=== PATIENT | male | born 1965 | race Caucasian/White ===

== ENCOUNTER 2017-08-21 17:39 | Emergency (ER) | payer OTHER ==
[2017-08-21 17:59] VITALS: BP 134/77; PULSE 66; TEMP 98; BMI 26.6
[2017-08-21] MEDS ORDERED: KETOROLAC TROMETHAMINE 60 MG/2 ML VIAL IM ONE (18:17)
--- NOTE | 2017-08-21 18:23 | PDOC ---
History of Present Illness - General Chief Complaint: Injury Stated Complaint: NECK PAIN Time Seen by Provider: 08/21/17 18:07 History Source: Patient Exam Limitations: No Limitations - History of Present Illness Initial Comments: 08/21/17 18:18 52 yr male with c/o neck pain and spasm after lifting heavy ladder at work today. Pt states 2 days ago he hit his head on a pipe when standing up. no LOC no dizzyness or headache. PT has history of DM in medications. Pt denies weakness or fatigue no arm pain . 08/21/17 18:23 Pain Location: reports: none Past History - Past Medical History Allergies/Adverse Reactions: Allergies Allergy/AdvReac Type Severity Reaction Status Date / Time No Known Allergies Allergy Verified 08/21/17 17:59 Home Medications: Ambulatory Orders Diazepam [Valium] 5 mg PO Q8H PRN #9 tablet MDD 15mg 08/21/17 Ibuprofen [Motrin -] 600 mg PO TID PRN #21 tablet 08/21/17 Diabetes: Yes - Surgical History Abdominal Surgery: Yes (HERNIA) - Suicide/Smoking/Psychosocial Hx Smoking History: Never smoked Hx Alcohol Use: No Drug/Substance Use Hx: No Review of Systems - Review of Systems Able to Perform ROS?: Yes Is the patient limited Hungarian proficient: No Constitutional: No: Symptoms Reported HEENTM: No: Symptoms Reported Respiratory: No: Symptoms reported Cardiac (ROS): No: Symptoms Reported ABD/GI: No: Symptoms Reported : No: Symptoms Reported Musculoskeletal: Yes: Symptoms Reported, See HPI, Neck Pain *Physical Exam - Vital Signs Last Vital Signs Temp Pulse Resp BP Pulse Ox 98.0 F 66 20 134/77 97 08/21/17 17:56 08/21/17 17:56 08/21/17 17:56 08/21/17 17:56 08/21/17 17:56 - Physical Exam General Appearance: Yes: Nourished, Appropriately Dressed HEENT: positive: EOMI, PITA Neck: positive: Supple, Tender lateral, Other (muscle spasm ). negative: Tender Respiratory/Chest: positive: Lungs Clear, Normal Breath Sounds Cardiovascular: positive: Regular Rhythm, Regular Rate Musculoskeletal: positive: Normal Inspection, Decreased Range of Motion, Muscle Spasm. 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, Fully Oriented, Alert, Normal Mood/ Affect, Motor Strength 03/01 ED Treatment Course - RADIOLOGY Radiology Studies Ordered: Category Date Time Status SPINE-CERVICAL [RAD] Stat Radiology 08/21/17 18:17 Ordered Medical Decision Making - Medical Decision Making 08/21/17 18:24 cc: neck strain after lifiting heavy ladder no headache or dizzyness ttp soft tissue left sterneclomastoid muscle will give toradol ice pack in place will get xray 08/21/17 19:17 *DC/Admit/Observation/Transfer Diagnosis at time of Disposition: Strain of tendon of neck Qualifiers: Encounter type: initial encounter Qualified Code(s): S16.1XXA - Strain of muscle, fascia and tendon at neck level, initial encounter; S16.1XXA - Strain of muscle, fascia and tendon at neck level, initial encounter - Discharge Dispostion Disposition: HOME - Prescriptions Prescriptions: Ibuprofen [Motrin -] 600 mg PO TID PRN #21 tablet PRN Reason: Pain Diazepam [Valium] 5 mg PO Q8H PRN #9 tablet MDD 15mg PRN Reason: Muscle Spasms - Patient Instructions Additional Instructions: apply warm compresses to areas of pain take the valium as directed for spasm take the motrin every 6hrs for pain apply warm compresses to the area of pain every 3hrs for 20 minutes follow with your doctor in 1-2 days Return if any worsening symptoms - Post Discharge Activity Forms/Work/School Notes: Back to Work
[2017-08-21] MEDS ORDERED: KETOROLAC TROMETHAMINE 60 MG/2 ML VIAL ONE (18:31)
== END 2017-08-21 19:41 | disposition home or self-care (01) ==
LOC: JERFT 17:39
PROC: 3E0233Z Introduction of Anti-inflammatory into Muscle, Percutaneous Approach (ICD-10-PCS; principal; 2017-08-21)
DX: S16.1XXA Strain of muscle, fascia and tendon at neck level, initial encounter (principal); X50.0XXA Overexertion from strenuous movement or load, initial encounter; X50.9XXA Other and unspecified overexertion or strenuous movements or postures, initial encounter; Y93.89 Activity, other specified; Y92.69 Other specified industrial and construction area as the place of occurrence of the external cause; Y99.0 Civilian activity done for income or pay
CPT/HCPCS: 72050-TC; 99281-25

== ENCOUNTER 2019-08-25 09:41 | Emergency (ER) | payer OTHER ==
[2019-08-25 09:46] VITALS: BP 124/78; PULSE 71; TEMP 97.5; BMI 61.6
[2019-08-25] MEDS ORDERED: KETOROLAC TROMETHAMINE 60 MG/2 ML VIAL IM ONE (10:33)
[2019-08-25] MEDS ORDERED: KETOROLAC TROMETHAMINE 60 MG/2 ML VIAL ONE (10:35)
--- NOTE | 2019-08-25 11:09 | PDOC ---
History of Present Illness - General Chief Complaint: Pain Stated Complaint: RT. ALMALER PAIN Time Seen by Provider: 08/25/19 09:52 - History of Present Illness Initial Comments: 08/25/19 11:07 CHIEF COMPLAINT: R shoulder pain HISTORY OF PRESENT ILLNESS: 54 yo M presents to [facility] with R shoulder pain. PAtient reports he was lifting 3 pieces of heavy plywood at work and "pulled a muscle" in his shoulder. Reports that he has full ROM but "feels sore." No recent travel or sick contacts. PAST MEDICAL HISTORY: Denies past medical history FAMILY HISTORY: Denies SOCIAL HISTORY: Denies tobacco, alcohol, illicit drug use. SURGICAL HISTORY: Denies ALLERGIES: No known drug allergies REVIEW OF SYSTEMS General/Constitutional: Denies fever or chills. Denies weakness, weight change. HEENT: Denies change in vision. Denies ear pain or discharge. Denies sore throat. Cardiovascular: Denies chest pain or shortness of breath. Respiratory: Denies cough, wheezing, or hemoptysis. Gastrointestinal: Denies nausea, vomiting, diarrhea or constipation. Denies rectal bleeding. Genitourinary: Denies dysuria, frequency, or change in urination. Musculoskeletal: R shoulder pain. Skin and breasts: Denies rash or easy bruising. Neurologic: Denies headache, vertigo, loss of consciousness, or loss of sensation. Psychiatric: Denies depression or anxiety. PHYSICAL EXAM General Appearance: Well-appearing, appropriately dressed. No apparent distress , no intoxication. HEENT: EOMI, PERRLA, normal ENT inspection, normal voice, TMs normal, pharynx normal. No conjunctival pallor. No photophobia, scleral icterus. Neck: Supple. Trachea midline. No tenderness, rigidity, carotid bruit, stridor , lymphadenopathy, or thyromegaly. Respiratory/Chest: Lungs CTAB. No shortness of breath, chest tenderness, respiratory distress, accessory muscle use. No crackles, rales, rhonchi, stridor , wheezing, dullness Cardiovascular: RRR. S1, S2. No JVD, murmur, bradycardia, tachycardia. Vascular Pulses: Dorsalis-Pedis (R): 2+, Dorsalis-Pedis (L): 2+ Gastrointestinal/Abdominal: Normal bowel sounds. Abdomen soft, non-distended. No tenderness or rebound tenderness. No organomegaly, pulsatile mass, guarding , hernia, hepatomegaly, splenomegaly. Lymphatic: No adenopathy, tenderness. Musculoskeletal/Extremities: Mild TTP to anterior R shoulder. Normal inspection. FROM of all extremities, normal capillary refill. Pelvis Stable. No CVA tenderness. No tenderness to extremities, pedal edema, swelling, erythema or deformity. Integumentary: Appropriate color, dry, warm. 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 Fully oriented, alert. Appropriate mood/affect. Motor strength 5/5. No appreciable EOM palsy, facial droop or sensory deficit. Past History - Past Medical History Allergies/Adverse Reactions: Allergies Allergy/AdvReac Type Severity Reaction Status Date / Time No Known Allergies Allergy Verified 08/25/19 09:43 Home Medications: Ambulatory Orders Diazepam [Valium] 5 mg PO Q8H PRN #9 tablet MDD 15mg 08/21/17 Ibuprofen [Motrin -] 600 mg PO TID PRN #21 tablet 08/21/17 Naproxen 500 mg PO BID #20 tablet 08/25/19 COPD: No Diabetes: Yes - Surgical History Abdominal Surgery: Yes (HERNIA) - Psycho Social/Smoking Cessation Hx Smoking History: Never smoked Have you smoked in the past 12 months: No Hx Alcohol Use: No Drug/Substance Use Hx: No *Physical Exam - Vital Signs Last Vital Signs Temp Pulse Resp BP Pulse Ox 97.5 F L 71 18 124/78 100 08/25/19 09:43 08/25/19 09:43 08/25/19 09:43 08/25/19 09:43 08/25/19 09:43 ED Treatment Course - RADIOLOGY Radiology Studies Ordered: Category Date Time Status SHOULDER-RIGHT [RAD] Stat Radiology 08/25/19 09:52 Completed - Medications Given in the ED: ED Medications Discontinued Medications Generic Name Dose Route Start Last Admin Trade Name Freq PRN Reason Stop Dose Admin Ketorolac Tromethamine 60 mg 08/25/19 10:33 08/25/19 10:37 Toradol Injection - IM 08/25/19 10:34 60 mg ONCE ONE Administration Medical Decision Making - Medical Decision Making 08/25/19 11:08 54 yo M presents to fast track with R shoulder pain. -x-ray -toradol Discharge - Discharge Information Problems reviewed: Yes Clinical Impression/Diagnosis: Shoulder pain Qualifiers: Chronicity: acute Laterality: right Qualified Code(s): M25.511 - Pain in right shoulder Condition: Stable Disposition: HOME - Admission No - Additional Discharge Information Prescriptions: Naproxen 500 mg PO BID #20 tablet - Follow up/Referral Referrals: Sixto Lance MD [Staff Physician] - - Patient Discharge Instructions Patient Printed Discharge Instructions: DI for Shoulder Pain - Post Discharge Activity
[2019-08-25] MEDS ORDERED: BUPIVACAINE HCL/PF 0.5% (5 MG/ML) 30 ML VIAL IJ ONE (11:57)
== END 2019-08-25 11:15 | disposition home or self-care (01) ==
LOC: JERFT 09:41
PROC: 3E0233Z Introduction of Anti-inflammatory into Muscle, Percutaneous Approach (ICD-10-PCS; principal; 2019-08-25)
DX: S49.81XA Other specified injuries of right shoulder and upper arm, initial encounter (principal); M25.511 Pain in right shoulder; X50.0XXA Overexertion from strenuous movement or load, initial encounter; Y93.89 Activity, other specified; Y92.69 Other specified industrial and construction area as the place of occurrence of the external cause; Y99.0 Civilian activity done for income or pay; E11.9 Type 2 diabetes mellitus without complications
CPT/HCPCS: 73030-TC-RT-FY; 99281-25

== ENCOUNTER 2020-05-05 11:01 | Emergency (ER) | payer OTHER ==
--- NOTE | 2020-05-05 11:04 | PDOC ---
Rapid Medical Evaluation Time Seen by Provider: 05/05/20 11:02 Medical Evaluation: Allergies Allergy/AdvReac Type Severity Reaction Status Date / Time No Known Allergies Allergy Verified 08/25/19 09:43 05/05/20 11:03 I performed a brief in-person evaluation of this patient. 55 y/o male with a R knee injury that he sustained today when he hit his knee against the car door. He states he had a previous injury to that knee. He has a h/o DM. Pertinent physical exam findings: + limping, R knee with brace in place, nontoxic I have ordered the following: R knee xray Patient to proceed to ED for further evaluation. Discharge Disposition - Diagnosis Right knee injury - Referrals - Patient Instructions - Post Discharge Activity
[2020-05-05] MEDS ORDERED: KETOROLAC TROMETHAMINE 30 MG/1 ML VIAL IM ONE (11:48)
[2020-05-05] MEDS ORDERED: KETOROLAC TROMETHAMINE 30 MG/1 ML VIAL ONE (11:52)
[2020-05-05 11:55] VITALS: BP 124/80; PULSE 92; TEMP 98.7; BMI 25.7
--- NOTE | 2020-05-05 11:56 | PDOC ---
History of Present Illness - General Chief Complaint: Injury Stated Complaint: RT KNEE INJURY Time Seen by Provider: 05/05/20 11:02 History Source: Patient Exam Limitations: Clinical Condition - History of Present Illness Initial Comments: 05/05/20 11:56 Patient with past medical history of osteoarthritis of the knee being followed by orthopedics present with complaint of right anterior knee pain status post accidentally hitting kneecap on a barstool while getting off a bus this morning. Report increased pain to right knee with ambulation. Reported putting home with topical lidocaine patch on knee which has been helping with pain. Patient not take anything else for pain. Denies weakness in knee. Patient report he has been advised to orthopedics he will need a knee replacement due to arthritis and being scheduled by orthopedics for knee surgery. Denies any other symptoms Occurred: reports: this morning Past History - Medical History Allergies/Adverse Reactions: Allergies Allergy/AdvReac Type Severity Reaction Status Date / Time No Known Allergies Allergy Verified 05/05/20 11:06 Home Medications: Ambulatory Orders Diazepam [Valium] 5 mg PO Q8H PRN #9 tablet MDD 15mg 08/21/17 Ibuprofen [Motrin -] 600 mg PO TID PRN #21 tablet 08/21/17 Naproxen 500 mg PO BID #20 tablet 08/25/19 Meloxicam 15 mg PO DAILY PRN #20 tablet 05/05/20 COPD: No Diabetes: Yes - Surgical History Abdominal Surgery: Yes (HERNIA) - Psycho-Social/Smoking History Smoking History: Never smoked Have you smoked in the past 12 months: No Information on smoking cessation initiated: No - Substance Abuse Hx (Audit-C & DAST Scrn) How often the patient has a drink containing alcohol: Never Score: In Men: 4 or > Positive; In Women: 3 or > Positive: 0 Screen Result (Pos requires Nsg. Audit-10AR): Negative In the last yr the pt used illegal drug/Rx for NonMed reason: No Score: Yes response is considered Positive: 0 Screen Result (Positive result requires Nsg. DAST-10): Negative Review of Systems - Review of Systems Able to Perform ROS?: Yes Is the patient limited Kyrgyz proficient: No Constitutional: No: Chills, Fever, Malaise HEENTM: No: Symptoms Reported, See HPI, Eye Pain, Blurred Vision, Tearing, Recent change in vision, Double Vision, Cataracts, Ear Pain, Ocular Prothesis, Ear Discharge, Nose Pain, Nose Congestion, Tinnitus, Nose Bleeding, Hearing Loss, Throat Pain, Throat Swelling, Mouth Pain, Dental Problems, Difficulty Swallowing, Mouth Swelling, Other Respiratory: No: Symptoms reported, See HPI, Cough, Orthopnea, Shortness of Breath, SOB with Exertion, SOB at Rest, Stridor, Wheezing, Productive cough, Hemoptysis, Other Cardiac (ROS): No: Symptoms Reported, See HPI, Chest Pain, Edema, Irregular Heart Rate, Lightheadedness, Palpitations, Syncope, Chest Tightness, Other Musculoskeletal: Yes: Symptoms Reported, See HPI, Joint Pain (right knee pain), Muscle Pain (anterior right knee pain) Integumentary: No: Symptoms Reported Neurological: No: Symptoms reported, Paresthesia, Tingling, Weakness All Other Systems: Reviewed and Negative *Physical Exam - Vital Signs Last Vital Signs Temp Pulse Resp BP Pulse Ox 98.7 F 92 H 18 124/80 99 05/05/20 11:03 05/05/20 11:03 05/05/20 11:03 05/05/20 11:03 05/05/20 11:03 - Physical Exam 05/05/20 12:00 GENERAL: Well developed, well nourished. Awake and alert. No acute distress. PULMONARY: No evidence of respiratory distress. MUSCULOSKELETAL : Mild tenderness to anterior patella of right knee. No joint effusion. No visible deformity or swelling to right knee. No bruising or ecchymosis to right knee SKIN: Warm and dry. Normal capillary refill. NEUROLOGICAL: Alert, awake, appropriate. No motor deficits in the lower extremities. Gait is normal without ataxia. PSYCHIATRIC: Cooperative. Good eye contact. Appropriate mood and affect. General Appearance: Yes: Nourished, Appropriately Dressed. No: Apparent Distress ED Treatment Course - Medications Given in the ED: ED Medications Discontinued Medications Generic Name Dose Route Start Last Admin Trade Name Freq PRN Reason Stop Dose Admin Ketorolac Tromethamine 30 mg 05/05/20 11:48 05/05/20 11:51 Toradol Injection - IM 05/05/20 11:49 30 mg ONCE ONE Administration Medical Decision Making - Medical Decision Making 05/05/20 11:58 Patient with past medical history of osteoarthritis of the knee being followed by orthopedics present with complaint of right anterior knee pain status post accidentally hitting danny on a barstool while getting off a bus this morning. Report increased pain to right knee with ambulation. Reported putting home with topical lidocaine patch on knee which has been helping with pain. Patient not take anything else for pain. Denies weakness in knee. Patient report he has been advised to orthopedics he will need a knee replacement due to arthritis and being scheduled by orthopedics for knee surgery. Denies any other symptoms Exam significant for mild tenderness to anterior patella of right knee. No visible swelling or deformity. Negative anterior and posterior drawer test of right knee. Patient with normal gait with mild limp from knee pain. X-ray of right knee shows moderate arthritis changes knee with no acute fracture or dislocation. X-ray result discussed with patient. Toradol 30 mg IM ordered for pain. Patient stable for discharge on meloxicam PRN for pain with orthopedics follow-up. Patient will follow-up with his own orthopedics Discharge - Discharge Information Problems reviewed: Yes Clinical Impression/Diagnosis: Contusion of right knee, initial encounter Right knee injury Qualifiers: Encounter type: initial encounter Qualified Code(s): S89.91XA - Unspecified injury of right lower leg, initial encounter Condition: Stable Disposition: HOME - Admission No - Additional Discharge Information Prescriptions: Meloxicam 15 mg PO DAILY PRN #20 tablet PRN Reason: knee pain - Follow up/Referral - Patient Discharge Instructions Patient Printed Discharge Instructions: DI for Knee Sprain Additional Instructions: X-ray of your knee shows no acute fracture or dislocation. X-ray shows arthritis in the knee which you are already aware of. Take prescribed medication as needed for pain. Use given Prieto bandage to help as needed for knee. Follow-up with orthopedics as discussed - Post Discharge Activity Work/Back to School Note: Back to Work
== END 2020-05-05 12:20 | disposition home or self-care (01) ==
LOC: JERFT 11:01
PROC: 3E023GC Introduction of Other Therapeutic Substance into Muscle, Percutaneous Approach (ICD-10-PCS; principal; 2020-05-05)
DX: S80.01XA Contusion of right knee, initial encounter (principal); W22.8XXA Striking against or struck by other objects, initial encounter
CPT/HCPCS: 73562-TC-RT-FY; 99284-25

== ENCOUNTER 2023-06-11 08:03 | Emergency (ER) | payer OTHER, BC ==
[2023-06-11 08:12] VITALS: BP 135/83; PULSE 84; RESP 18; TEMP 98.6; BMI 26.6
[2023-06-11] MEDS ORDERED: ACETAMINOPHEN 500 MG TABLET (FP) PO ONE (08:39)
[2023-06-11] MEDS ORDERED: LIDOCAINE 5% TOPICAL PATCH TP ONE (08:39)
[2023-06-11] MEDS ORDERED: KETOROLAC TROMETHAMINE 30 MG/1 ML VIAL IM ONE (08:41)
[2023-06-11] MEDS ORDERED: KETOROLAC TROMETHAMINE 60 MG/2 ML VIAL ONE (09:34)
[2023-06-11] MEDS ORDERED: ACETAMINOPHEN 325 MG TABLET (FP) ONE (09:34)
[2023-06-11] MEDS ORDERED: LIDOCAINE 5% TOPICAL PATCH ONE (09:34)
[2023-06-11] MEDS ORDERED: LIDOCAINE PATCH REMOVAL MC SCH (22:00)
== END 2023-06-11 10:30 | disposition home or self-care (01) ==
LOC: JERFT 08:03
PROC: 3E0233Z Introduction of Anti-inflammatory into Muscle, Percutaneous Approach (ICD-10-PCS; principal; 2023-06-11)
DX: M54.41 Lumbago with sciatica, right side (principal)
CPT/HCPCS: 99284-25

== ENCOUNTER 2024-07-01 07:11 | Emergency (ER) | payer BC ==
[2024-07-01 07:34] VITALS: BP 137/90; PULSE 66; RESP 15; TEMP 98; BMI 26.6
[2024-07-01] MEDS ORDERED: LIDOCAINE HCL 1%, 10 MG/ML (20ML VIAL) ONE (08:00)
[2024-07-01] MEDS ORDERED: DIPHTH,PERTUSS(ACELL),TET 0.5 ML DISP.SYRIN IM ONE (08:03)
[2024-07-01] MEDS ORDERED: AMOX TR/POT CLAV 875MG/125MG TABLETS (FP) ONE (08:12)
[2024-07-01] MEDS: AMOX TR/POT CLAV 875MG/125MG TABLETS (FP) PO ONE (08:14)
[2024-07-01] MEDS: LIDOCAINE HCL 1%, 10 MG/ML (50 mL VIAL) SQ ONE (08:14)
[2024-07-01] MEDS: DIPHTH,PERTUSS(ACELL),TET 0.5 ML DISP.SYRIN IM ONE (08:15)
== END 2024-07-01 08:23 | disposition home or self-care (01) ==
LOC: JER 07:11 → JERFT 07:11
PROC: 0H9QXZZ Drainage of Finger Nail, External Approach (ICD-10-PCS; principal; 2024-07-01)
PROC: 3E0234Z Introduction of Serum, Toxoid and Vaccine into Muscle, Percutaneous Approach (ICD-10-PCS; 2024-07-01)
DX: S60.111A Contusion of right thumb with damage to nail, initial encounter (principal); W22.8XXA Striking against or struck by other objects, initial encounter; Y99.0 Civilian activity done for income or pay
CPT/HCPCS: 73140-TC-RT-FY; 90715; 99284-25

== ENCOUNTER 2024-08-12 07:22 | Emergency (ER) | payer BC, OTHER ==
[2024-08-12 07:29] VITALS: BP 149/87; PULSE 70; RESP 20; TEMP 98.4; BMI 27.4
[2024-08-12] MEDS ORDERED: KETOROLAC TROMETHAMINE 15 MG/ML VIAL ONE (08:04)
[2024-08-12] MEDS: KETOROLAC TROMETHAMINE 15 MG/ML VIAL IM ONE (08:06)
== END 2024-08-12 11:31 | disposition home or self-care (01) ==
LOC: JER 07:22 → JERFT 07:22
PROC: 3E0233Z Introduction of Anti-inflammatory into Muscle, Percutaneous Approach (ICD-10-PCS; principal; 2024-08-12)
DX: S43.401A Unspecified sprain of right shoulder joint, initial encounter (principal); X50.1XXA Overexertion from prolonged static or awkward postures, initial encounter; Y99.0 Civilian activity done for income or pay
CPT/HCPCS: 73030-TC-RT-FY; 99284-25